=== PATIENT | female | born 1940 | race Caucasian/White ===

== ENCOUNTER → 2018-11-24 | Outpatient (CLI) | payer MEDICARE, BC | END | disposition home or self-care (01) | LOC: PCVCCLINIC 13:00 | PROVIDERS: ATTEND Internal Medicine Cardiovascular Disease | DX: I25.10 Atherosclerotic heart disease of native coronary artery without angina pectoris (principal); I08.0 Rheumatic disorders of both mitral and aortic valves; E78.00 Pure hypercholesterolemia, unspecified; I42.9 Cardiomyopathy, unspecified; I11.0 Hypertensive heart disease with heart failure; I50.23 Acute on chronic systolic (congestive) heart failure; I47.1 Supraventricular tachycardia; R07.89 Other chest pain; J43.9 Emphysema, unspecified; E78.5 Hyperlipidemia, unspecified; Z99.81 Dependence on supplemental oxygen; Z86.2 Personal history of diseases of the blood and blood-forming organs and certain disorders involving the immune mechanism; Z79.82 Long term (current) use of aspirin; Z79.899 Other long term (current) drug therapy; Z87.891 Personal history of nicotine dependence | CPT/HCPCS: 36415; 80061; 93005; G0463 ==

== ENCOUNTER → 2018-12-09 | Outpatient (CLI) | payer MEDICARE, BC ==
--- NOTE | 2018-12-09 16:53 | PCVCIMAG ---
APPROVED REPORT Study performed: 12/09/2018 16:04:00 EXAM: Comprehensive 2D, Doppler, and color-flow Echocardiogram Patient Location: Echo lab Room #: 2Status: routine BSA: 2.00 HR: 84 bpmBP: 124/60 mmHg Rhythm: NSR Other Information Study Quality: Adequate Risk Factors: Cardiac Risk Factors: HTN, Hyperlipidemia Indications Aortic Valve Disease COPD Mitral Valve Disease 2D Dimensions IVSd: 8.00 (7-11mm)LVOT Diam: 20.58 (18-24mm) LVDd: 52.99 mm PWd: 10.35 (7-11mm)Ascending Ao: 39.66 (22-36mm) LVDs: 43.82 (25-40mm) Left Atrium: 40.56 (27-40mm) Aortic Root: 23.47 mm LV Single Plane 4CH: 31.32 % LV Single Plane 2CH: 33.15 % Biplane EF: 31.4 % Volumes Left Atrial Volume (Systole) Single Plane 4CH: 102.89 mLSingle Plane 2CH: 63.99 mL Biplane LA Volume: 85.00 mLLA ESV Index: 42.00 mL/m2 Aortic Valve AoV Peak Frederick.: 3.92 m/s AO Peak Gr.: 62.12 mmHgLVOT Max P.86 mmHg AO Mean Gr.: 41.55 mmHgLVOT Mean P.22 mmHg AO V2 Mean: 3.13 m/sLVOT Max V: 0.96 m/s AO V2 VTI: 109.05 cmLVOT Mean V: 0.70 m/s JHONY (VTI): 0.82 ll2XHGF V1 VTI: 26.85 cm JHONY Vmax: 0.81 cm2 SV (LVOT): 89.24 mL Mitral Valve MV Peak Gr.: 14.70 mmHg MV Mean Gr.: 5.43 mmHgE/A Ratio: 0.6 MV Decel. Time: 167.16 ms MV E Max Frederick.: 1.36 m/s MV A Frederick.: 2.14 m/s MV Max Frederick.: 1.91 m/s MV Mean Frederick.: 1.07 m/s MV VTI: 392.43 mm MVA VTI: 227.40 mm2 MV PHT: 58.98 ms MVA (PHT): 3.73 cm2 TDI E/Lateral E': 45.33E/Medial E': 17.00 Medial E' Frederick.: 0.08 m/s Lateral E' Frederick.: 0.03 m/s Pulmonary Valve PV Peak Frederick.: 0.79 m/sPV Peak Gr.: 2.47 mmHg Tricuspid Valve TV Vmax: 0.78 m/s Left Ventricle The left ventricle is normal size. There is global moderate hypokinesis of the left ventricle. There is normal left ventricular wall thickness. Left ventricular systolic function is moderately decreased. LVEF is 30-35%. Grade I - abnormal relaxation pattern. Right Ventricle The right ventricle is normal size. The right ventricular systolic function is normal. Atria Left atrium is moderately dilated. Right atrium is mildly dilated. Aortic Valve Aortic valve is trileaflet. Severe aortic valve sclerosis. No aortic regurgitation is present. Severe aortic stenosis. Highest mean aortic valve gradient is 41.6_mmHg. Peak aortic valve gradient is 61.4 mmHg.mean grad 41mmhg Calculated JHONY by the continuity equation is 0.8 cm2. Mitral Valve Mitral valve leaflets have restricted excursion. Moderate mitral annular calcification. There is no mitral valve regurgitation noted. The anterior leaflet is pliable and mobile while the posterior leaflet is calcified and immobile. Mild mitral stenosis. Tricuspid Valve The tricuspid valve is normal in structure. There is no tricuspid valve regurgitation noted. Pulmonic Valve The pulmonary valve is normal in structure. Trace pulmonic regurgitation. Great Vessels The aortic root is normal in size. 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 The aortic arch is not seen. IVC is normal in size and collapses >50% with inspiration. Pericardium There is no pericardial effusion. There is no pleural effusion. <Conclusion> The left ventricle is normal size. Left ventricular systolic function is moderately decreased. There is global moderate hypokinesis of the left ventricle. LVEF is 30-35%. Grade I - abnormal relaxation pattern. The right ventricle is normal size. Left atrium is moderately dilated. Right atrium is mildly dilated. Aortic valve is trileaflet. Severe aortic valve sclerosis. Severe aortic stenosis. Highest mean aortic valve gradient is 41.6_mmHg. Peak aortic valve gradient is 61.4 mmHg.mean grad 41mmhg Calculated JHONY by the continuity equation is 0.8 cm2. Mitral valve leaflets have restricted excursion. Moderate mitral annular calcification. There is no tricuspid valve regurgitation noted. The aortic root is normal in size. 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 The aortic arch is not seen. There is no pericardial effusion.
== END | disposition home or self-care (01) ==
LOC: PCVCIMAG 15:01
PROVIDERS: ATTEND Internal Medicine Cardiovascular Disease
DX: I25.10 Atherosclerotic heart disease of native coronary artery without angina pectoris (principal); I10 Essential (primary) hypertension; E78.2 Mixed hyperlipidemia; I35.0 Nonrheumatic aortic (valve) stenosis; J44.9 Chronic obstructive pulmonary disease, unspecified
CPT/HCPCS: 93005; 93306; G0463